=== PATIENT | male | born 1965 | race Hispanic/Latino ===

== ENCOUNTER 2023-06-29 16:15 | Observation (INO) | payer SELFPAY ==
[2023-06-29] VITALS (40 sets, daily range): BP systolic 115–244; BP diastolic 57–104
[~2023-06-29] VITALS: Ht 177.8 cm; Wt 82.2 kg
--- NOTE | 2023-06-29 16:15 | NUR ---
PATIENT ARRIVED TO ER VIA POV. PATIENT WHEELED TO ROOM WITH ER STAFF. PATIENT AWAKE, ALERT AND STABLE. NO DISTRESS NOTED. PHYSICIAN AT BEDSIDE.
[2023-06-29 16:58] LABS: BASO% 0.2 % (0-3); EOS% 0.3 % (0-8); HEMATOCRIT 42.8 % (39.0-50.0); HEMOGLOBIN 14.8 g/dl (14.0-18.0); IMMATURE GRANULOCYTES 0.2 % (0.0-5.0); LYMPH% 13.3 % (15-41); MEAN CELL VOLUME 87.2 fL CALC (80.0-100.0); MEAN CORPUSCULAR HGB 30.1 pG CALC (26.0-32.0); MEAN CORPUSCULAR HGB CONC 34.6 g/dL CAL (32.0-36.0); MONO% 4.1 % (2-13); NEUT# 10.23 thou/uL (1.82-7.42); NEUT% 81.9 % (42-76); RED BLOOD COUNT 4.91 mill/uL (4.70-6.10); RED CELL DISTRI WIDTH 12.1 % (11.5-15.5)
[2023-06-29] MEDS ORDERED: hydrALAZINE HCL 20 MG/ML VIAL(1 ML) IV ONE (17:05)
[2023-06-29] MEDS ORDERED: ASPIRIN 81 MG/TAB PO ONE (17:10)
[2023-06-29 17:11] LABS: LIPASE 197 u/l (23-300)
[2023-06-29 17:12] LABS: ALBUMIN 4.5 g/dL (3.2-5.0); ALKALINE PHOSPHATASE 81 u/l (38-126); ANION GAP 10 (6-22 (CALC)); BILIRUBIN, TOTAL 0.8 mg/dL (0.2-1.3); BUN 14 mg/dL (9-20); BUN/CREATININE RATIO 13 (12-20 (CALC)); CARBON DIOXIDE 29 mmol/l (22-30); CHLORIDE 102 mmol/l (95-108); CREATININE 1.1 mg/dL (0.7-1.3); GFR FOR AFR.AMER. > 60 ML/MIN (>=60 (CALC)); GFR OTHER RACES > 60 ML/MIN (>=60 (CALC)); POTASSIUM 3.3 mmol/l (3.5-5.1); SGOT/AST 28 u/l (17-59); SODIUM 138 mmol/l (137-146); TOTAL PROTEIN 7.5 g/dL (6.3-8.2)
[2023-06-29] MEDS ORDERED: LABETALOL HCL 20 MG/ 4 ML CARTRG IV ONE (18:35)
--- NOTE | 2023-06-29 19:05 | NUR ---
REPORT RECEIVED FROM Ye ALANIS RN
[2023-06-29] MEDS ORDERED: CLONIDINE0.2 MG PO (20:17)
[2023-06-29] MEDS ORDERED: LISINOPRIL30 MG PO (20:18)
[2023-06-29] MEDS ORDERED: HYDROCHLOROT25 MG PO (20:18)
--- NOTE | 2023-06-29 20:18 | NUR ---
MED REC COMPLETED. MEDICATION BOTTLES AT BEDSIDE.
[2023-06-29] MEDS ORDERED: MAGNESIUM HYDROXIDE 30 ML UDC PO PRN (20:35)
[2023-06-29] MEDS ORDERED: ACETAMINOPHEN 325 MG/TAB PO PRN (20:35)
[2023-06-29] MEDS ORDERED: NITROGLYCERIN 0.4 MG/TAB SL PRN (20:35)
[2023-06-29] MEDS ORDERED: hydrALAZINE HCL 20 MG/ML VIAL(1 ML) IV PRN (20:35)
[2023-06-29] MEDS ORDERED: LABETALOL HCL 20 MG/ 4 ML CARTRG IV PRN (20:40)
[2023-06-29] MEDS ORDERED: ENOXAPARIN SODIUM 40 MG/0.4 ML SYR SC SCH (21:00)
--- NOTE | 2023-06-29 21:30 | NUR ---
PATIENT RESTING IN BED. FAMILY MEMBER AT BEDSIDE.
--- NOTE | 2023-06-29 22:30 | NUR ---
AWAITING ADMISSION MD ASA AWARE
[2023-06-29 22:44] LABS: URINE BILIRUBIN - DIPSTICK Negative (NEGATIVE); URINE BLOOD DIPSTICK Negative (NEGATIVE); URINE GLUCOSE - DIPSTICK Negative (NEGATIVE); URINE KETONE 80 mg/dL (NEGATIVE); URINE LEUK ESTERASE Negative (NEGATIVE); URINE NITRITE - DIPSTICK Negative (Negative); URINE PH 7.5 (4.5-8.0); URINE PROTEIN - DIPSTICK Negative (NEG-TRACE); URINE SPECIFIC GRAVITY 1.015; URINE UROBILINOGEN - DIPSTICK 0.2 E.U./dL (0.2)
[2023-06-29 22:49] LABS: URINE COLOR Yellow
--- NOTE | 2023-06-29 23:25 | NUR ---
REMINDED ABOUT PENDING CERT ORDER.
--- NOTE | 2023-06-29 23:45 | NUR ---
REPORT ATTEMPTED, NURSE UNAVAILBLE.
[2023-06-30] VITALS (15 sets, daily range): BP systolic 152–191; BP diastolic 74–89
--- NOTE | 2023-06-30 00:14 | NUR ---
REPORT GIVEN TO PENG ESTELITA
--- NOTE | 2023-06-30 00:45 | NUR ---
NURSE ON MEDSUR NOTIFIED PENDING [place]OV[place] ORDER. WRITTER UNABLE TO OBTAIN MEDICATION FROM ED MARCELLOS
--- NOTE | 2023-06-30 00:56 | NUR ---
PATIENT TRANSPORTED TO [facility] FLOOR VIA W/C WITH PRIMARY NURSE AND ALL BELONGINGS.
[2023-06-30 06:02] LABS: BASO% 0.2 % (0-3); EOS% 0.7 % (0-8); HEMATOCRIT 44.4 % (39.0-50.0); HEMOGLOBIN 15.2 g/dl (14.0-18.0); IMMATURE GRANULOCYTES 0.1 % (0.0-5.0); LYMPH% 21.6 % (15-41); MEAN CELL VOLUME 88.4 fL CALC (80.0-100.0); MEAN CORPUSCULAR HGB 30.3 pG CALC (26.0-32.0); MEAN CORPUSCULAR HGB CONC 34.2 g/dL CAL (32.0-36.0); MONO% 5.3 % (2-13); NEUT# 6.41 thou/uL (1.82-7.42); NEUT% 72.1 % (42-76); RED BLOOD COUNT 5.02 mill/uL (4.70-6.10); RED CELL DISTRI WIDTH 12.3 % (11.5-15.5)
[2023-06-30 06:22] LABS: ALBUMIN 4.2 g/dL (3.2-5.0); ALKALINE PHOSPHATASE 70 u/l (38-126); ANION GAP 11 (6-22 (CALC)); BILIRUBIN, TOTAL 0.6 mg/dL (0.2-1.3); BUN 11 mg/dL (9-20); BUN/CREATININE RATIO 12 (12-20 (CALC)); CARBON DIOXIDE 26 mmol/l (22-30); CHLORIDE 106 mmol/l (95-108); CREATININE 0.9 mg/dL (0.7-1.3); GFR FOR AFR.AMER. > 60 ML/MIN (>=60 (CALC)); GFR OTHER RACES > 60 ML/MIN (>=60 (CALC)); MAGNESIUM 2.2 mg/dL (1.6-2.3); POTASSIUM 3.9 mmol/l (3.5-5.1); SGOT/AST 20 u/l (17-59); SODIUM 138 mmol/l (137-146); TOTAL PROTEIN 6.9 g/dL (6.3-8.2)
--- NOTE | 2023-06-30 07:00 | NUR ---
SIHFT CHANGE REPORT, PT AWAKE ALERT AND ORIENTED RESTING IN BED, NO C/O DISCOMFORT, IVF INFUSING, TELE MONITOR IN PLACE, CALL SHARMA IN REACH AND BED LOCKED IN LOWEST POSITION
[2023-06-30] MEDS ORDERED: LISINOPRIL 10 MG/TAB PO SCH (09:00)
[2023-06-30] MEDS ORDERED: cloNIDine HCL 0.1 MG/TAB PO SCH (09:00)
--- NOTE | 2023-06-30 11:08 | NUR ---
INFORMED OF ULTRA SOUND PROCEDURE, BEING TRANSPORTED OFF UNIT AT THIS TIME VIA W/C TO PROCEDURE AREA. INSURANCE INSPECTOR TRANSPORTING PT.
[2023-06-30] MEDS ORDERED: amLODIPine BESYLATE 5 MG/TAB PO SCH (12:00)
--- NOTE | 2023-06-30 12:00 | NUR ---
RELAXING IN BED, ANXIOUS TO GO HOME SO HE CAN GO TO WORK. 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 T EDUCATED ON MANAGING HTN AND MEDICATION ADHERENCE, STATED UNDERSTANDING.
[2023-06-30] MEDS ORDERED: AMLODIPINE BESYL5 MG PO (13:33)
--- NOTE | 2023-06-30 16:03 | NUR ---
Discharge instructions given. Patient verbalizes understanding of same. Discharged in good condition via Ambulatory to Home with family. All belongings sent with pt.
== END 2023-06-30 15:52 | disposition home or self-care (01) | DRG 305 ==
LOC: ED 16:15 → ED-I 20:00 → ED 23:23 → MS2 23:24
PROVIDERS: Family Medicine; Nurse Practitioner; ADMIT Student in an Organized Health Care Education/Training Program; ATTEND Student in an Organized Health Care Education/Training Program
DX: I16.0 Hypertensive urgency (principal); I10 Essential (primary) hypertension; T46.5X6A Underdosing of other antihypertensive drugs, initial encounter; Z91.128 Patient's intentional underdosing of medication regimen for other reason
CPT/HCPCS: G0378; J1650